=== PATIENT | female | born 1945 | race Caucasian/White ===

== ENCOUNTER 2024-08-31 05:33 | Emergency (ER) | payer MEDICARE ==
[~2024-08-31] VITALS: Ht 167.6 cm; Wt 83.9 kg
[2024-08-31 10:13] VITALS: BP 145/75; TEMP 98.2; O2SAT 96
== END 2024-08-31 10:32 | disposition home or self-care (01) ==
LOC: ER 05:39
DX: S00.93XA Contusion of unspecified part of head, initial encounter (principal); W06.XXXA Fall from bed, initial encounter; Y93.89 Activity, other specified; Y92.89 Other specified places as the place of occurrence of the external cause; Y99.8 Other external cause status
CPT/HCPCS: 70450-TC; 71045-TC; 72125-TC; 72170-TC

== ENCOUNTER 2025-02-18 09:18 | Inpatient (IN) | payer MEDICARE, BC ==
[~2025-02-18] VITALS: Ht 165.1 cm; Wt 65.1 kg
--- NOTE | 2025-02-18 09:31 | NUR ---
[facility] SCREENING TOOL COMPLETED
--- NOTE | 2025-02-18 09:40 | NUR ---
CONTACTED NURSE SUP FOR BED
--- NOTE | 2025-02-18 09:41 | NUR ---
[facility] SWAB COLLECTED AND SENT
--- NOTE | 2025-02-18 09:56 | NUR ---
ALEC RECINOS (DAUGHTER) CONTACT #:
--- NOTE | 2025-02-18 09:56 | NUR ---
Aiden reina in [facility] - 02/18/25 at 0956 by SOKatelynn DIANE
--- NOTE | 2025-02-18 10:00 | NUR ---
311-1, ER ADMITTING AWARE
[2025-02-18] MEDS ORDERED: MEMA10TA PO (10:14)
[2025-02-18] MEDS ORDERED: ASPI-1169 PO (10:14)
[2025-02-18] MEDS ORDERED: VITAMIN B12 PO (10:14)
[2025-02-18] MEDS ORDERED: ATOR80TA PO (10:14)
[2025-02-18] MEDS ORDERED: ANTACID PO (10:14)
[2025-02-18] MEDS ORDERED: OLAN5TAB3 PO (10:14)
[2025-02-18] MEDS ORDERED: CRAN500T3 PO (10:14)
[2025-02-18] MEDS ORDERED: LOPE2TAB25 PO (10:14)
[2025-02-18] MEDS ORDERED: ERGO500040 PO (10:14)
[2025-02-18] MEDS ORDERED: MAGN400O6 PO (10:14)
[2025-02-18] MEDS ORDERED: MELA3CAP2 PO (10:14)
[2025-02-18] MEDS ORDERED: ACET325T53 PO (10:14)
[2025-02-18] MEDS ORDERED: TRAZ-182 PO (10:14)
[2025-02-18 10:22] LABS: PLATELET COUNT (AUTO) 254 K/uL (150-450); RED BLOOD CELL COUNT(AUTO) 3.70 MIL/uL (4.0-5.2); RED CELL DISTRIBUTION WIDTH 16.1 % (11.5-15.0); WHITE BLOOD COUNT (AUTO) 6.4 K/uL (4.3-11.0)
[2025-02-18 10:28] LABS: CALCIUM, SERUM 7.7 mg/dL (8.5-10.1); CREATININE 0.8 mg/dL (0.6-1.3); SODIUM SERUM 136 mmol/L (136-145); UREA NITROGEN, BLOOD 13 mg/dL (7-18)
[2025-02-18 10:36] LABS: INR 1.07 (0.91-1.10)
[2025-02-18 10:41] LABS: ASPARTATE AMINOTRANSFERASE 49 U/L (15-37); NT-PRO BNP 247 pg/mL (0-125); TOTAL PROTEIN, SERUM 4.4 g/dL (6.4-8.2)
--- NOTE | 2025-02-18 10:58 | NUR ---
CONTACTED SN[facility] TO REQUEST PAPERWORK. THEY WILL GIVE US A CALL BACK IN 5 MINS
--- NOTE | 2025-02-18 11:09 | NUR ---
report given to Mario LEMOS for shanell
--- NOTE | 2025-02-18 11:28 | NUR ---
pt transferred to 311-1, acls protocol
[2025-02-18] MEDS ORDERED: ZOLPIDEM TARTRATE 5 MG TABLET PO PRN (15:00)
[2025-02-18] MEDS ORDERED: MAGNESIUM HYDROXIDE 30 ML UDC PO PRN (15:00)
[2025-02-18] MEDS ORDERED: ONDANSETRON HCL/PF 4 MG/2 ML VIAL IVP PRN (15:00)
[2025-02-18] MEDS ORDERED: MAG HYDROX/AL HYDROX/SIMETH 30 ML UDC PO PRN (15:00)
[2025-02-18] MEDS ORDERED: Z GUARD REMEDY 4 OZ OINT TP PRN (15:00)
--- NOTE | 2025-02-18 15:23 | NUR ---
TRESTLEMANFLEXOGRAPHIC PRINTING PRESS OPERATOR NOTES ADMITTED PATIENT FROM [facility]TO UNIT VIA GURNEY AT 1130 TRANSPORTED BY ER STAFF WITH DX OF ANASARCA AND HYPOALBUMINEMIA. REPORT GIVEN BY CANELO CASTILLO. PATIENT IS A/O X 2 AND VERBALLY COMMUNICATIVE WITH CONFUSION/FORGETFULNESS NOTED. ON ROOM AIR, TOLERATING WELL, BREATHING EVEN AND UNLABORED, NO ACUTE RESPIRATORY NOTED. VITALS TAKEN AND RECORDED. SKIN ASSESSMENT PERFORMED: PT WITH IV ACCESS ON RT AC G#20 INTACT, PATENT AND FLUSHES WELL. NO S/SX OF PHLEBITIS OR INFILTRATION AT SITE OBSERVED. PHOTOS OF SKIN ISSUES TAKEN AND PLACED IN THE CHART. WOUND CONSULT ORDERED. PATIENT ORIENTED TO ROOM AND HOW TO USE THE CALL LIGHT. ALL BELONGINGS ACCOUNTED FOR BY JERICA OWENS. PLACE ON TELE-MONITOR WITH CURRENT READING OF SR, HR ON THE 70'S. NO S/SX OF CARDIAC DISTRESS OBSERVED. ALL SAFETY PRECAUTIONS IMPLEMENTED: BED PLACED IN LOW AND LOCKED POSITION, SIDE-RAILS UP X3, BED ALARM ON AND CALL LIGHT WITHIN REACH. PLAN OF CARE ONGOING.
[2025-02-18 15:27] LABS: LDL 29.0 mg/dL (0-99)
[2025-02-18] MEDS: ENOXAPARIN SODIUM 40 MG/0.4 ML DISP.SYRIN SQ SCH (15:36)
[2025-02-18] MEDS: PROSOURCE / PROSTAT (PYXIS) 30 ML UDC PO SCH (15:36)
[2025-02-18 16:00] VITALS: BP 129/80; TEMP 98.1; O2SAT 98
[2025-02-18] MEDS: POTASSIUM CHLORIDE 20 MEQ TAB.PRT.SR PO ONE (16:22)
[2025-02-18] MEDS: FUROSEMIDE 40 MG/4 ML VIAL IV SCH (18:21)
--- NOTE | 2025-02-18 18:44 | NUR ---
SHELL FREEZING MACHINE OPERATOR CLOSING NOTES PT IN BED AWAKE AND RESTING AT SEMI-AMEZCUA'S POSITION AT THIS TIME. DAUGHTER AT BEDSIDE. A/O X 2 AND VERBALLY COMMUNICATIVE WITH CONFUSION/FORGETFULNESS NOTED. ON ROOM AIR, TOLERATING WELL, BREATHING EVEN AND UNLABORED, NO ACUTE RESPIRATORY NOTED. ON TELE-MONITOR WITH CURRENT READING OF SR, HR ON THE 70'S. NO S/SX OF CARDIAC DISTRESS OBSERVED. IV ACCESS ON RT AC G#20 ON SL, INTACT, PATENT AND FLUSHES WELL. NO S/SX OF PHLEBITIS OR INFILTRATION AT SITE NOTED. BLE AND LEFT HAND EDEMA PERSIST, KEPT ELEVATED THEM WITH PILLOWS. ALL NEEDS/CARE ANTICIPATED AND MET. ALL SAFETY PRECAUTIONS MAINTAINED: BED IN LOW AND LOCKED POSITION, SIDE-RAILS UP X3, BED ALARM ON AND CALL LIGHT WITHIN REACH. PLAN OF CARE ONGOING.
--- NOTE | 2025-02-18 19:00 | NUR ---
RN OPENING NOTES LYING COMFORTABLY IN BED, A/O X 2 CONVERSANT, WITH EPISODE OF CONFUSION AND FORGETFULNESS SECONDARY TO DEMENTIA.ORIENTED TO UNIT AND STAFF, NO SIGN OF RESPIRATORY DISTRESS, ON ROOM AIR, NON LABORED BREATHING, NO ACUTE RESPIRATORY NOTED. CONTINUE ON TELE-MONITOR SINUS RHYTHM RATE 75. NO CHEST PAIN. IV SITE RT AC G#20 ON SL, INTACT AND PATENT, NO S/SX OF PHLEBITIS OR INFILTRATION AT SITE NOTED. NO REDNESS, NO SWELLING,ANAZARCA NOTED, MORE SWELLING ON BLE AND LEFT HAND EDEMA , KEPT ELEVATED USING PILLOWS. FALL, SAFETY AND ASPIRATION PRECAUTIONS MAINTAINED: BED IN LOW AND LOCKED POSITION, SIDE-RAILS UP X2, BED ALARM ON AND CALL LIGHT WITHIN REACH. KEPT TABLE WITHIN EASY REACH, CONTINUE PLAN OF CARE.
[2025-02-18 20:00] VITALS: BP 123/89; TEMP 98.2; O2SAT 98
[2025-02-19] VITALS: BP 126/84; TEMP 98.1; TEMP 98.2; O2SAT 99
--- NOTE | 2025-02-19 00:08 | NUR ---
RN NOTES: TURNING AND REPOSITIONING DONE, LASIX GIVEN.BP-125/90.
[2025-02-19 04:00] VITALS: BP 110/74; TEMP 98.1; O2SAT 100; O2SAT 99
--- NOTE | 2025-02-19 06:46 | NUR ---
RN CLOSING NOTES ABLE TO SLEEP IN THE NIGHT, AWAKE IN BETWEEN, NEEDS ATTENDED, REMAINS A/O X 1 , SHE TALK BUT UNABLE TO ARTICULATE THE RIGHT WORD. WITH EPISODE OF CONFUSION AND FORGETFULNESS SECONDARY TO DEMENTIA, NO SIGN OF RESPIRATORY DISTRESS, ON ROOM AIR, NON LABORED BREATHING, NO ACUTE RESPIRATORY NOTED. CONTINUE ON TELE-MONITOR SINUS RHYTHM RATE 79. NO CHEST PAIN. IV SITE RT AC G#20 ON SL, INTACT AND PATENT, NO S/SX OF PHLEBITIS OR INFILTRATION AT SITE NOTED. NO REDNESS, NO SWELLING, ANAZARCA NOTED, MORE SWELLING ON BLE AND LEFT HAND EDEMA , KEPT ELEVATED USING PILLOWS. FALL, SAFETY AND ASPIRATION PRECAUTIONS MAINTAINED: BED IN LOW AND LOCKED POSITION, SIDE-RAILS UP X2, BED ALARM ON AND CALL LIGHT WITHIN REACH. KEPT TABLE WITHIN EASY REACH, CONTINUE PLAN OF CARE.MORNING CARE RENDERED,CLEAN AND CHANGE , ENYYXQ=[id number]. PUREWICK CHANGE TO NEW ONE, ATTACHED TO WALL SUCTION, FOR LABS THIS MORNING, ENDORSED FOR CONTINUITY OF CARE
--- NOTE | 2025-02-19 07:51 | NUR ---
RN OPENING NOTE RECEIVED PATIENT ASLEEP ON BED, AWAKENS TO VERBAL STIMULI. A/O X 1-2, CONVERSANT, WITH EPISODE OF CONFUSION AND FORGETFULNESS SECONDARY TO DEMENTIA. ON ROOM AIR, BREATHING EVEN AND UNLABORED. NO DISTRESS. NO SOB NOTED. ON CONTINUOUS TELE-MONITORING WITH CURRENT READING OF SINUS RHYTHM ON 70'S BPM. IV SITE ON RIGHT ANTECUBITAL #20G ON SL, INTACT AND PATENT, NO S/SX OF PHLEBITIS OR INFILTRATION AT SITE NOTED. NO REDNESS, NO SWELLING, ANASARCA NOTED, MORE SWELLING ON BLE AND LEFT HAND EDEMA, ELEVATED USING PILLOWS. FALL, SAFETY AND ASPIRATION PRECAUTIONS IN PLACE: BED IN LOW AND LOCKED POSITION, SIDE-RAILS UP X2, BED ALARM ON AND CALL LIGHT WITHIN REACH. KEPT TABLE WITHIN EASY REACH, PLAN OF CARE ONGOING.
[2025-02-19 08:00] VITALS: BP 127/77; TEMP 97.9; O2SAT 100
[2025-02-19 08:33] LABS: PLATELET COUNT (AUTO) 244 K/uL (150-450); RED BLOOD CELL COUNT(AUTO) 3.93 MIL/uL (4.0-5.2); RED CELL DISTRIBUTION WIDTH 16.0 % (11.5-15.0); WHITE BLOOD COUNT (AUTO) 7.4 K/uL (4.3-11.0)
[2025-02-19] MEDS: PANTOPRAZOLE 40 MG TABLET.DR PO SCH (08:54)
[2025-02-19 09:04] LABS: CALCIUM, SERUM 7.8 mg/dL (8.5-10.1); CREATININE 0.6 mg/dL (0.6-1.3); PHOSPHORUS 2.9 mg/dL (2.5-4.9); SODIUM SERUM 141.0 mmol/L (136-145); UREA NITROGEN, BLOOD 12.0 mg/dL (7-18)
[2025-02-19 09:08] LABS: LDL 32.0 mg/dL (0-99)
--- NOTE | 2025-02-19 10:35 | NUR ---
WOUND CARE CONSULT: PT PRESENTS WITH REDNESS TO BILATERAL HEELS, SACRAL DEEP TISSUE INJURY (INTACT, EXTENDING TO BUTTOCKS), RT ELBOW WOUND, ALL PRESENT ON ADMISSION. DR FREEMAN CALLED FOR SURGICAL CONSULT. DISCUSSED SKIN PROTECTION WITH NURSING STAFF. MD IN AGREEMENT WITH PLAN OF CARE.
[2025-02-19] MEDS: THERAHONEY GEL 1.5 OZ TUBE TP SCH (11:00)
[2025-02-19 11:30] VITALS: BP 124/87; TEMP 97.7; O2SAT 98
[2025-02-19 16:00] VITALS: BP 129/84; TEMP 97.5; O2SAT 97
[2025-02-19 17:38] LABS: ASPARTATE AMINOTRANSFERASE 43.0 U/L (15-37); TOTAL PROTEIN, SERUM 4.4 g/dL (6.4-8.2)
--- NOTE | 2025-02-19 19:20 | NUR ---
RN CLOSING NOTE PATIENT IS AWAKE ON BED. A/O X 1-2, CONVERSANT, WITH EPISODE OF CONFUSION AND FORGETFULNESS SECONDARY TO DEMENTIA. ON ROOM AIR, BREATHING EVEN AND UNLABORED. NO DISTRESS. NO SOB NOTED. STILL ON CONTINUOUS TELE-MONITORING. IV SITE ON RIGHT ANTECUBITAL #20G ON SL, INTACT AND PATENT, NO S/SX OF PHLEBITIS OR INFILTRATION AT SITE NOTED. NO REDNESS, NO SWELLING, ANASARCA NOTED, MORE SWELLING ON BLE AND LEFT HAND EDEMA, ELEVATED USING PILLOWS. DUE MEDS GIVEN. CARE RENDERED. NEEDS ATTENDED. FALL, SAFETY AND ASPIRATION PRECAUTIONS MAINTAINED PER UNIT PROTOCOL. ENDORSED TO LIFT TRUCK OPERATOR NURSE FOR CONTINUITY OF CARE.
--- NOTE | 2025-02-19 19:22 | NUR ---
COMPOSITION MIXER OPENING NOTE RECEIVED PATIENT IN BED AWAKE, A/OX1 PATIENT IS CONVERSANT ABLE TO MAKE NEEDS KNOWN ON ROOM AIR NO SIGNS OF SOB AND DISTRESS, PATIENT WITH AN IV ACCESS ON THE RIGHT AC #20G SL PATENT AND INTACT, EDEMA IS NOTED ON THE LEFT ARM AND BLE ELEVATED, SAFETY MEASURES MAINTAINED BED SET TO LOW AND LOCKED BED ALARM ON SIDE RAILS UPX2 PLACED CALL LIGHT AND BEDSIDE TABLE WITHIN EASY REACH PLAN OF CARE ONGOING
[2025-02-19 20:00] VITALS: BP 104/63; TEMP 97.7; O2SAT 96
[2025-02-19] MEDS: ACETAMINOPHEN 325 MG TABLET PO PRN (20:03)
[2025-02-20 00:12] VITALS: BP 108/79; TEMP 97.7; O2SAT 97
[2025-02-20 01:13] LABS: ASPARTATE AMINOTRANSFERASE 52.0 U/L (15-37); TOTAL PROTEIN, SERUM 4.9 g/dL (6.4-8.2)
[2025-02-20 04:00] VITALS: BP 103/67; TEMP 98.1; O2SAT 96
[2025-02-20 04:20] VITALS: BP 103/67; TEMP 98.1; O2SAT 96
--- NOTE | 2025-02-20 06:53 | NUR ---
[employer] AGENT CLOSING NOTE PATIENT IN BED SLEEPING EASILY AWOKEN, A/OX1 NAME ISAIAS ON ROOM AIR NO SIGNS OF SOB AND DISTRESS IV ACCESS ON THE RIGHT AC #20G SL PATENT AND INTACT SECONDARY IV ACCESS ON THE LEFT HAND #22G SL PATENT AND INTACT, COMPUTER SYSTEMS INTEGRATOR IN PLACE READING SR-ST HR @ 91-107, PATIENT HAS NO COMPLAINTS OF PAIN,PUREWICK IN PLACE CONNECTED TO LEI SUCTION WORKING WELL PATIENT STILL NOTED WITH EDEMA ON THE LOWER EXTREMITIES ELEVATED ALSO ELEVATED THE LEFT ARM,ALL DUE MEDS GIVEN KEPT PATIENT CLEAN AND DRY WOUND CARE DONE, SAFETY MEASURES MAINTAINED BED SET TO LOW AND LOCKED BED ALARM ON SIDE RAILS UPX2 PLACED CALL LIGHT AND BEDSIDE TABLE WITHIN EASY REACH WILL ENDORSE TO INCOMING NURSE FOR CONTINUITY OF CARE
--- NOTE | 2025-02-20 07:40 | NUR ---
RN OPENING NOTE RECEIVED PATIENT ASLEEP ON BED, AWAKENS TO VERBAL STIMULI. A/O X 1, CONVERSANT, WITH EPISODE OF CONFUSION AND FORGETFULNESS SECONDARY TO DEMENTIA. ON ROOM AIR, BREATHING EVEN AND UNLABORED. NO DISTRESS. NO SOB NOTED. IV SITE ON RIGHT ANTECUBITAL #20G AND LEFT HAND #22G, BOTH ON SL, INTACT AND PATENT, NO S/SX OF PHLEBITIS OR INFILTRATION AT SITE NOTED. ALL FALL, SAFETY AND ASPIRATION PRECAUTIONS IN PLACE: BED IN LOW AND LOCKED POSITION, SIDE-RAILS UP X2, BED ALARM ON AND CALL LIGHT WITHIN REACH. KEPT TABLE WITHIN EASY REACH, PLAN OF CARE ONGOING.
[2025-02-20 08:00] VITALS: BP 131/90; TEMP 97.2; O2SAT 97
[2025-02-20 16:00] VITALS: BP 120/87; TEMP 98.1; O2SAT 98
--- NOTE | 2025-02-20 18:59 | NUR ---
RN CLOSING NOTE PATIENT IS AWAKE ON BED. A/O X 1, CONVERSANT, WITH EPISODE OF CONFUSION AND FORGETFULNESS SECONDARY TO DEMENTIA. ON ROOM AIR, BREATHING EVEN AND UNLABORED. NO DISTRESS. NO SOB NOTED. IV SITE ON RIGHT ANTECUBITAL #20G AND LEFT HAND #22G, BOTH ON SL, INTACT AND PATENT, NO S/SX OF PHLEBITIS OR INFILTRATION AT SITE NOTED. DUE MEDS GIVEN. CARE RENDERED. NEEDS ATTENDED. ALL FALL, SAFETY AND ASPIRATION PRECAUTIONS MAINTAINED PER UNIT PROTOCOL. WILL ENDORSE TO PRINTED CIRCUIT BOARD PANELS PLATER NURSE FOR CONTINUITY OF CARE.
--- NOTE | 2025-02-20 19:55 | NUR ---
RN OPENING NOTE PATIENT IS AWAKE ON BED. A/O X 1, CONVERSANT, WITH EPISODE OF CONFUSION AND FORGETFULNESS SECONDARY TO DEMENTIA. ON ROOM AIR, BREATHING EVEN AND UNLABORED. NO DISTRESS. NO SOB NOTED. IV SITE ON RIGHT ANTECUBITAL #20G AND LEFT HAND #22G, BOTH ON SL, INTACT AND PATENT. PATIENT IS ON PUREWICK-CONNECTED TO WALL SUCTIONING. ALL FALL, SAFETY AND ASPIRATION PRECAUTIONS MAINTAINED PER UNIT PROTOCOL. WILL CONTINUE TO MONITOR.
[2025-02-20 20:00] VITALS: BP 134/86; TEMP 97.9; O2SAT 95
--- NOTE | 2025-02-21 07:02 | NUR ---
RN CLOSING NOTE PATIENT IS AWAKE ON BED. A/O X 1, CONVERSANT, WITH EPISODE OF CONFUSION AND FORGETFULNESS SECONDARY TO DEMENTIA. ON ROOM AIR, BREATHING EVEN AND UNLABORED. NO DISTRESS. NO SOB NOTED. IV SITE ON RIGHT ANTECUBITAL #20G AND LEFT HAND #22G, BOTH ON SL, INTACT AND PATENT. ALL NEEDS ARE MET. ALL MEDS GIVEN. PATIENT IS ON PUREWICK-CONNECTED TO WALL SUCTIONING. ALL FALL, SAFETY AND ASPIRATION PRECAUTIONS MAINTAINED PER UNIT PROTOCOL. WILL ENDORSE TO MORNING SHIFT NURSE.
--- NOTE | 2025-02-21 07:30 | NUR ---
OPENING NOTE RECEIVED PATIENT ASLEEP IN BED, AWAKENS TO TOUCH STIMULI, A/O X 1, WITH EPISODE OF CONFUSION AND FORGETFULNESS SECONDARY TO DEMENTIA PER DIESEL BUS MECHANIC NURSE. ON ROOM AIR, BREATHING EVEN AND UNLABORED. NO DISTRESS. NO SOB NOTED. IV SITE ON RIGHT ANTECUBITAL #20G AND LEFT HAND #22G, BOTH ON SALINE LOCK. SAFETY AND ASPIRATION PRECAUTIONS MAINTAINED PER UNIT PROTOCOL. BED IN LOW AND LOCKED POSITION, CALL LIGHT WITHIN REACH. PLAN OF CARE ONGOING
[2025-02-21 08:00] LABS: ASPARTATE AMINOTRANSFERASE 57.0 U/L (15-37); TOTAL PROTEIN, SERUM 5.0 g/dL (6.4-8.2)
[2025-02-21] MEDS ORDERED: POTA10CA43 PO (09:24)
[2025-02-21] MEDS ORDERED: FURO-145 PO (09:24)
[2025-02-21 09:32] VITALS: BP 128/81; TEMP 98.6; O2SAT 96
--- NOTE | 2025-02-21 11:45 | NUR ---
RN NOTE CALLED [facility] [phone] SPOKE TO [employer] SOFI INFORMED OF NEW MEDICATIONS. CALLBACK NUMBER WAS PROVIDED FOR [employer] IF HE HAS QUESTIONS. [employer] VERBALIZED UNDERSTANDING
--- NOTE | 2025-02-21 12:30 | NUR ---
DISCHARGE NOTES PATIENT DISCHARGE IN STABLE CONDITION, A/O X1. VITAL SIGNS TAKEN AND RECORDED. IV ACCESS REMOVED, DRESSING PLACED DRY AND INTACT. NAME ARM BAND REMOVED. SKIN ASSESSMENT DONE, PHOTOS TAKEN ATTACHED TO CHART, WOUND TREATMENT DONE ORDERED. ALL BELONGINGS CHECKED AND SIGNED. DISCHARGE INSTRUCTIONS INDICATED IN THE PACKET, INFORMED SOFI (CAREGIVER IN THE SOPHIE). PATIENT LEFT UNIT VIA GURNEY WITH NO SIGNS OF DISTRESS ACCOMPANIED BY 2 WEIGHT RECORDER. CHARGE NURSE NADIRA AWARE OF DISCHARGE
== END 2025-02-21 12:30 | disposition home health service (06) | DRG 843 ==
LOC: ER 09:20 → TELE 10:36 → MED 02-20 01:02
PROVIDERS: ATTEND Internal Medicine
DX: E88.09 Other disorders of plasma-protein metabolism, not elsewhere classified (principal); I50.31 Acute diastolic (congestive) heart failure; Z66 Do not resuscitate; L89.010 Pressure ulcer of right elbow, unstageable; L89.156 Pressure-induced deep tissue damage of sacral region; F03.90 Unspecified dementia, unspecified severity, without behavioral disturbance, psychotic disturbance, mood disturbance, and anxiety; E83.51 Hypocalcemia; E87.6 Hypokalemia; E78.5 Hyperlipidemia, unspecified; Z88.0 Allergy status to penicillin; L22 Diaper dermatitis; R32 Unspecified urinary incontinence; S80.211A Abrasion, right knee, initial encounter; S80.212A Abrasion, left knee, initial encounter; S51.012A Laceration without foreign body of left elbow, initial encounter; Z79.82 Long term (current) use of aspirin; Z79.899 Other long term (current) drug therapy; R74.01 Elevation of levels of liver transaminase levels; S81.012A Laceration without foreign body, left knee, initial encounter; S81.011A Laceration without foreign body, right knee, initial encounter; X58.XXXA Exposure to other specified factors, initial encounter; Y92.9 Unspecified place or not applicable; L30.9 Dermatitis, unspecified
CPT/HCPCS: 36415; 71045-TC; 73130-TC; 80048-TC; 80061-TC; 80076-TC; 83735-TC; 83880; 84100-TC; 84443-TC; 84484-TC; 85025-TC; 85730-TC; 87081-TC; 92526; 92611; 93307-TC; 97110-TC; 97116-TC; 97530-TC; A6213; A6253; G0378; J1650; J1938; J7050